=== PATIENT | female | born 1945 | race Caucasian/White ===

== ENCOUNTER → 2020-12-01 | Day surgery (SDC) | payer MEDICARE ==
[~2020-12-01] VITALS: Ht 167.6 cm; Wt 64.4 kg
[~2020-12-01] MED LIST: BUSPIRONE HCL5 MG PO; DICLOFENAC TD; HYDROCODON-ACE1 EAC2 PO; VOLTAREN EC 2525 MG PO
[2020-12-01 09:06] LABS: HEMOGLOBIN 12.9 gm/dl (12.3-15.3); RED BLOOD COUNT 4.09 M/UL (4.00-5.10)
[2020-12-01 09:37] LABS: BUN/CREATININE RATIO 21 (0-10)
== END | disposition home or self-care (01) ==
LOC: OR 08:00
PROVIDERS: Orthopaedic Surgery
DX: S52.572A Other intraarticular fracture of lower end of left radius, initial encounter for closed fracture (principal); M25.511 Pain in right shoulder; G89.29 Other chronic pain; F41.9 Anxiety disorder, unspecified; M79.18 Myalgia, other site; J44.9 Chronic obstructive pulmonary disease, unspecified; G43.719 Chronic migraine without aura, intractable, without status migrainosus; M06.9 Rheumatoid arthritis, unspecified; M81.0 Age-related osteoporosis without current pathological fracture; G62.9 Polyneuropathy, unspecified; Z20.822 Contact with and (suspected) exposure to COVID-19; Z87.891 Personal history of nicotine dependence; Z91.81 History of falling; W19.XXXA Unspecified fall, initial encounter; I49.1 Atrial premature depolarization
CPT/HCPCS: 71045; 73110; 76000; 80048; 85025; 85610; 85730; 93005; C1713; J0171; J0690; J1100; J2001; J2250; J2405; J2704; J2795; J3010; J7120; U0002